=== PATIENT | male | born 1990 ===

== ENCOUNTER 2016-12-19 17:38 | Emergency (ER) | payer BC, MEDICAID ==
[2016-12-19 17:46] VITALS: BMI 20.5
--- NOTE | 2016-12-19 18:51 | C.PDOC ---
History Of Present Illness 26 y/o male presents to ED requesting ETOH detox. Patient reports last drink was 3 days ago. No physical complaints at this time. Time Seen by Provider: 12/19/16 18:48 Chief Complaint (Nursing): Psychiatric Evaluation History Per: Patient History/Exam Limitations: no limitations Onset/Duration Of Symptoms: Days Current Symptoms Are (Timing): Still Present Suicide/Self Injury Attempted (Context): None Modifying Factor(s): Alcohol Past Medical History Reviewed: Historical Data, Nursing Documentation, Vital Signs Vital Signs: Last Vital Signs Temp 98 F 12/19/16 19:03 Pulse 78 12/19/16 19:03 Resp 18 12/19/16 19:03 BP 120/80 12/19/16 19:03 Pulse Ox 99 12/19/16 19:03 - Medical History PMH: Anxiety, Bipolar Disorder (mixed manic episodes), Post Traumatic Stress Disorder Surgical History: Appendectomy - [facility] LAPAROSCOP APPENDECTOMY (08/12/13) Family History: States: No Known Family Hx - Social History Hx Alcohol Use: No Hx Substance Use: Yes (Heroine) - Immunization History Hx Tetanus Toxoid Vaccination: No Hx Influenza Vaccination: Yes (10/2016) Hx Pneumococcal Vaccination: No Review Of Systems Except As Marked, All Systems Reviewed And Found Negative. Constitutional: Negative for: Fever, Chills Eyes: Negative for: Vision Change Cardiovascular: Negative for: Chest Pain Respiratory: Negative for: Shortness of Breath Gastrointestinal: Negative for: Nausea, Vomiting Skin: Negative for: Rash Physical Exam - Physical Exam Appears: Non-toxic, No Acute Distress, Other (Multiple piercings around body) Skin: Warm, Dry, No Rash Head: Atraumatic, Normacephalic Oral Mucosa: Moist Neck: Normal ROM, Supple Chest: Symmetrical Cardiovascular: Rhythm Regular Respiratory: Normal Breath Sounds, No Rales, No Rhonchi, No Wheezing Gastrointestinal/Abdominal: Soft, No Tenderness, No Guarding, No Rebound Neurological/Psych: Oriented x3, Normal Speech, Normal Motor, Normal Sensation ED Course And Treatment O2 Sat by Pulse Oximetry: 100 (RA) Pulse Ox Interpretation: Normal Medical Decision Making Medical Decision Making: persistent ETOH abuse no new issues d.w. Crisis Evaluators who saw pt No Detox beds available- will call for opt f/u. Disposition Doctor Will See Patient In The: Office Counseled Patient/Family Regarding: Studies Performed, Diagnosis - Disposition Referrals: [facility] [Outside] [facility] [Outside] [facility] [Outside] [facility] [Outside] Disposition: HOME/ ROUTINE Disposition Time: 18:51 Condition: GOOD Additional Instructions: call for outpatient availability of Detox: [phone] Speak with Mariella Instructions: Abuse of Alcohol (ED) Forms: [facility] (Kazakh) - Clinical Impression Clinical Impression: Substance abuse - Scribe Statement The provider has reviewed the documentation as recorded by the Scribcasper Candelario All medical record entries made by the Scribe were at my direction and personally dictated by me. I have reviewed the chart and agree that the record accurately reflects my personal performance of the history, physical exam, medical decision making, and the department course for this patient. I have also personally directed, reviewed, and agree with the discharge instructions and disposition.
[2016-12-19 19:06] VITALS: BP 120/80; PULSE 78; RESP 18; TEMP 98
[2016-12-19 20:44] VITALS: O2SAT 100
== END 2016-12-19 18:55 | disposition home or self-care (01) ==
LOC: C.ER 17:38
DX: F19.10 Other psychoactive substance abuse, uncomplicated (principal)